=== PATIENT | female | born 1960 | race Caucasian/White ===

== ENCOUNTER → 2017-08-31 | Outpatient (CLI) | payer BC ==
[2014-04-15 13:16] VITALS: BMI 34.6
[~2017-08-31] MED LIST: ALP25 PO; ARI10 PO; ARIP15TA9 PO; ARIP30TA10 PO; CHOL200021 PO; CLO5 PO; DESV50TA9 PO; DOC100 PO; DOCU-170 PO; ESC10 PO; HYDR25CA84 PO; LAM100 PO; LAMO200T46 PO; LEV25 PO; LEV2I PO; LEVO250T37 PO; LEVO88TA42 PO; LOR1 PO; LOR10/325 PO; LUR80PT PO; MULT-7; MULT1CAP41 PO; OMEG500C7 PO; OMEP-218 PO; OXYC-865 PO; QUET25TA30 PO; SULF-182 PO; VENL150C61 PO
[2017-08-31 09:29] LABS: PLATELET COUNT, AUTOMATED 294 K/uL (150-450)
[2017-08-31 09:49] LABS: LDL CHOLESTEROL 178 mg/dl
== END ==
LOC: LAB 09:14
PROVIDERS: ATTEND Nurse Practitioner Psychiatric/Mental Health
DX: Z00.00 Encounter for general adult medical examination without abnormal findings (principal); E55.9 Vitamin D deficiency, unspecified
CPT/HCPCS: 36415; 82040; 82247; 82306; 82310; 82374; 82435; 82465; 82565; 82947; 83540; 83718; 84075; 84132; 84155; 84295; 84443; 84450; 84460; 84478; 84520; 85025

== ENCOUNTER → 2018-02-28 | Outpatient (CLI) | payer BC ==
[2014-04-15 13:16] VITALS: BMI 34.6
[2018-02-28 11:08] LABS: LDL CHOLESTEROL 122 mg/dl
== END ==
LOC: LAB 10:20
PROVIDERS: ATTEND Nurse Practitioner Psychiatric/Mental Health
DX: E55.9 Vitamin D deficiency, unspecified (principal); E03.9 Hypothyroidism, unspecified; E78.5 Hyperlipidemia, unspecified
CPT/HCPCS: 36415; 82040; 82247; 82306; 82310; 82374; 82435; 82465; 82565; 82947; 83718; 84075; 84132; 84155; 84295; 84443; 84450; 84460; 84478; 84520

== ENCOUNTER → 2018-11-06 | Outpatient (CLI) | payer BC ==
[2014-04-15 13:16] VITALS: BMI 34.6
[2018-11-06 09:46] LABS: PLATELET COUNT, AUTOMATED 288 K/uL (150-450)
[2018-11-06 10:09] LABS: LDL CHOLESTEROL 151 mg/dl
== END ==
LOC: LAB 09:10
PROVIDERS: ATTEND Nurse Practitioner Psychiatric/Mental Health
DX: Z00.00 Encounter for general adult medical examination without abnormal findings (principal); E03.9 Hypothyroidism, unspecified; E55.9 Vitamin D deficiency, unspecified
CPT/HCPCS: 36415; 82040; 82247; 82306; 82310; 82374; 82435; 82465; 82565; 82947; 83540; 83718; 84075; 84132; 84155; 84295; 84439; 84443; 84450; 84460; 84478; 84480; 84520; 85025